=== PATIENT | female | born 1985 | race Caucasian/White ===

== ENCOUNTER 2021-03-07 10:56 | Emergency (ER) | payer BC ==
--- NOTE | 2021-03-07 11:33 | EDM.PDOC ---
ED HPI GENERAL MEDICAL PROBLEM - General Chief Complaint: Allergic Reaction Stated Complaint: FACE IS SWOLLEN Time Seen by Provider: 03/07/21 11:21 Source of Information: Reports: Patient, RN - History of Present Illness INITIAL COMMENTS - FREE TEXT/NARRATIVE: Noa is a 35 year old female presents with 16 hrs of entire body rash, hives which wax and wane last night after sitting near a bonfire (inside) with increased itching overnight. Rash on upper chest has faded but scratches are present. This am she went with family for a boat ride and developed fullness in her upper lip and facial swelling with slight fullness in the back of her throat. Noa took Benadryl 2 chewable in car when coming to ER with improvement of her symptoms by the time she arrived. Noa is concerned that her reaction may become worse over the remainder of her vacation in the area. Noa is from the [facility]. 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 Noa had been prescribed topical ointment in the past by dermatology but has not needed for nearly 2 years. - Related Data Allergies Allergy/AdvReac Type Severity Reaction Status Date / Time No Known Allergies Allergy Verified 03/07/21 11:17 Home Meds: Home Meds Fluocinolone Acetonide 60 gm TP BID 14 Days #60 oint...g. 03/07/21 [Rx] predniSONE [Prednisone] 40 mg PO DAILY 5 Days #10 tablet 03/07/21 [Rx] Social & Family History - Tobacco Use Tobacco Use Status *Q: Light Tobacco User Years of Tobacco use: 15 Packs/Tins Daily: 0.3 Used Tobacco, but Quit: Yes Month/Year Tobacco Last Used: 03/2021 - Caffeine Use Caffeine Use: Reports: Coffee - Recreational Drug Use Recreational Drug Use: No ED ROS ALLERGIC REACTION - Review of Systems Review Of Systems: Comprehensive ROS is negative, except as noted in HPI. ED EXAM GENERAL NO PERIP PULSE - Physical Exam Exam: See Below Exam Limited By: No Limitations General Appearance: Alert, WD/WN, No Apparent Distress Eye Exam: Bilateral Eye: Normal Inspection Ears: Normal External Exam Nose: Normal Inspection, Normal Mucosa Throat/Mouth: Other (slight fullness of upper more than lower lip). No: Normal Oropharynx (fullness erythema and slight edema noted ) Head: Atraumatic Neck: Normal Inspection, Supple Respiratory/Chest: No Respiratory Distress, Lungs Clear, Normal Breath Sounds Cardiovascular: Normal Peripheral Pulses, Regular Rate, Rhythm, No Murmur Neurological: Alert, Oriented, CN II-XII Intact, Normal Cognition, Normal Gait Psychiatric: Normal Mood Skin Exam: Warm, Dry, Intact, Normal Color, Rash (faint lace rash on numerous body surfaces without obvious wheal and flare. Scaly rash left hand with pustules (dyshydrotic ezema/dermatitis). ) Course - Vital Signs Last Recorded V/S: Last Vital Signs Temp 36.4 C 03/07/21 11:17 Pulse 90 03/07/21 11:17 Resp 16 03/07/21 11:17 BP 124/80 03/07/21 11:17 Pulse Ox 100 03/07/21 11:17 - Orders/Labs/Meds Meds: Medications Discontinued Medications Generic Name Dose Route Start Last Admin Trade Name James PRN Reason Stop Dose Admin Prednisone 60 mg 03/07/21 11:34 03/07/21 11:50 Prednisone 20 Mg Tab PO 03/07/21 11:35 60 mg ONETIME ONE Administration - Re-Assessments/Exams Free Text/Narrative Re-Assessment/Exam: No adverse reaction to oral prednisone during visit. Self care and prescriptions given for patient to review. Return precautions discussion if allergy symptoms worsen or new concerns. 03/07/21 12:22 Departure - Departure Time of Disposition: 12:23 Disposition: Home, Self-Care 01 Clinical Impression: Allergic reaction, Hives, Swelling of lip, tongue, and throat, Dermatitis, Dyshidrotic eczema - Discharge Information Prescriptions: Fluocinolone Acetonide 60 gm TP BID 14 Days #60 oint...g. predniSONE [Prednisone] 40 mg PO DAILY 5 Days #10 tablet Instructions: Allergies, Adult, Anaphylactic Reaction, Adult, Hives, Rash, Adult, Eczema Referrals: PCP,None [Primary Care Provider] - Forms: ED Department Discharge Additional Instructions: 1. Prednisone 40 mg daily x 5 days. 2. Zytrec 10mg (OTC) every am and pm x 10 days. 3. Benadryl 25-50mg every 6-8 hours as needed for additional symptoms if needed. 4. Steroid ointment for dermatitis on hands. 5. Keep track of exposures (over the last 72 hours) and time of year for repeat evaluation, if recurrence next year or with similar exposure history. 6. Return to ER if return worsening, new or concerning symptoms. Sepsis Event Note (ED) - Evaluation Sepsis Screening Result: No Definite Risk - Focused Exam Vital Signs: Vital Signs Temp Pulse Resp BP Pulse Ox 03/07/21 11:17 36.4 C 90 16 124/80 100 03/07/21 11:14 36.4 C 90 16 124/80 100
[2021-03-07] MEDS ORDERED: predniSONE 20 MG Tab PO ONE (11:34)
== END 2021-03-07 12:36 | disposition home or self-care (01) ==
LOC: JP.ED 10:56
DX: L50.0 Allergic urticaria (principal); L30.1 Dyshidrosis [pompholyx]; Z72.0 Tobacco use; Z79.899 Other long term (current) drug therapy
CPT/HCPCS: 99283; J7512

== ENCOUNTER 2021-03-07 23:46 | Emergency (ER) | payer BC ==
[2021-03-08] MEDS ORDERED: Cetirizine 10 MG Tab PO ONE (00:27)
--- NOTE | 2021-03-08 00:27 | EDM.PDOC ---
ED HPI GENERAL MEDICAL PROBLEM - General Chief Complaint: Allergic Reaction Stated Complaint: RASH Time Seen by Provider: 03/08/21 00:07 Source of Information: Reports: Patient, Old Records History Limitations: Reports: No Limitations - History of Present Illness INITIAL COMMENTS - FREE TEXT/NARRATIVE: Noa is a 35-year-old female presenting to the ED for reevaluation of an a llergic reaction. Patient was seen and evaluated earlier today by Katiuska Davis get started on therapy for her reaction. This evening, the patient again started having blotchy flushing from her upper chest to her head. This was associated with some swelling and increased temperature in the skin. The patient did not experience any shortness of breath or difficulty swallowing. There was no significant pruritus. The patient called the [facility] nurse triage line who was very rude to her so she called the [facility] nurse line as she is from [place], [place] and goes to [facility]. They recommend that she come to the ER to be seen again. The patient did take diphenhydramine about an hour prior to arrival and upon arrival to the ED most of her symptoms had completely abated. 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 He does also have a history significant for seasonal allergies but has not been on anything for these for the last several years. - Related Data Allergies Allergy/AdvReac Type Severity Reaction Status Date / Time No Known Allergies Allergy Verified 03/07/21 23:53 Home Meds: Home Meds Fluocinolone Acetonide 60 gm TP BID 14 Days #60 oint...g. 03/07/21 [Rx] diphenhydrAMINE [Benadryl] 50 mg PO Q6H PRN 03/07/21 [History] predniSONE [Prednisone] 40 mg PO DAILY 5 Days #10 tablet 03/07/21 [Rx] Social & Family History - Tobacco Use Tobacco Use Status *Q: Former Tobacco User Used Tobacco, but Quit: Yes Month/Year Tobacco Last Used: 1 week Second Hand Smoke Exposure: No - Caffeine Use Caffeine Use: Reports: Coffee - Recreational Drug Use Recreational Drug Use: No ED ROS ALLERGIC REACTION - Review of Systems Review Of Systems: See Below Constitutional: Reports: No Symptoms HEENT: Reports: Other (Facial swelling and flushing) Respiratory: Reports: No Symptoms Cardiovascular: Reports: No Symptoms Endocrine: Reports: No Symptoms GI/Abdominal: Reports: No Symptoms : Reports: No Symptoms Musculoskeletal: Reports: No Symptoms Skin: Reports: Erythema (Blotchy erythema that coalesced to a single patch from her upper chest to her face associated with increased temperature) Neurological: Reports: No Symptoms Psychiatric: Reports: Anxiety Hematologic/Lymphatic: Reports: No Symptoms Immunologic: Reports: No Symptoms ED EXAM GENERAL NO PERIP PULSE - Physical Exam Exam: See Below Exam Limited By: No Limitations General Appearance: Alert, No Apparent Distress, Anxious Eye Exam: Bilateral Eye: EOMI, PERRL Nose: Normal Inspection, Normal Mucosa, Clear Rhinorrhea. No: Nasal Swelling, Nasal Drainage Throat/Mouth: Normal Inspection, Normal Lips, Normal Oropharynx, Normal Voice, No Airway Compromise Head: Atraumatic, Normocephalic, Other (Temperature of the skin on the lower half of the face is a bit warmer than the upper. This extends down into the neck. There is no evidence for erythema or edema at this time.). No: Facial Swelling Neck: Normal Inspection, Supple, Non-Tender, Full Range of Motion Respiratory/Chest: No Respiratory Distress, Lungs Clear, Normal Breath Sounds, No Accessory Muscle Use. No: Decreased Breath Sounds, Wheezing, Stridor Cardiovascular: Normal Peripheral Pulses, Regular Rate, Rhythm, No Murmur GI/Abdominal: Normal Bowel Sounds Neurological: Alert, Oriented, Normal Cognition, No Motor/Sensory Deficits Skin Exam: Warm, Dry, Intact, Normal Color Lymphatic: No Adenopathy Course - Vital Signs Last Recorded V/S: Last Vital Signs Temp 36.6 C 03/07/21 23:57 Pulse 88 03/07/21 23:57 Resp 16 03/07/21 23:57 BP 121/76 03/07/21 23:57 Pulse Ox 98 03/07/21 23:57 - Re-Assessments/Exams Free Text/Narrative Re-Assessment/Exam: 03/08/21 00:38 by history and exam, it sounds like this was an acute histamine release. The patient was given cetirizine 10 mg in the ED and is already on other medication for her allergies. I recommend that she pickle sorter and start the cetirizine tomorrow during her time up here. As her symptoms have abated, I think she is suitable for discharge home. Indications return to the ED were discussed. Departure - Departure Time of Disposition: 00:28 Disposition: Home, Self-Care 01 Clinical Impression: Allergic reaction Qualifiers: Encounter type: initial encounter Qualified Code(s): T78.40XA - Allergy, unspecified, initial encounter - Discharge Information Instructions: Allergies, Adult, [id number] Referrals: PCP,None [Primary Care Provider] - Care Plan Goals: The reaction that you described causing the swelling and redness is caused by histamine release. The most common is activation of mast cells which are white blood cells that contain histamine that become activated with allergic stimulants. This in turn causes them to release the histamine causing dilation of the blood vessels and allowing more plasma to leave the bloodstream into the soft tissues causing the increased redness and edema. You may also get itching as a result of the histamine activating bradykinin in the skin and soft tissues. This type of allergic reaction is not associated typically with anaphylaxis which can be life-threatening. This type of reaction can be typically managed with Benadryl and long-acting antihistamines like cetirizine (Zyrtec) or Basia or Claritin. I suspect that one of the allergens that may have triggered your reaction today is pollen related due to the route and it stresses on the pine trees which have been in a prolonged pollination phase since referring. Because of this I would recommend taking the Zyrtec daily while up here. I would also keep some Benadryl on hand in case you get an acute flare, however, I think this is less likely to occur while having the cetirizine in your system. As we discussed, although the swelling and redness is bothersome, it is not worrisome as is usually not associated with anything that is serious. However, if you should develop any difficulty swallowing, muffled voice, or difficulty breathing, these are things that I would term as serious and require immediate intervention. It was a pleasure meeting you two. I hope that you enjoy your time appear and that these reactions will be behind you. Sepsis Event Note (ED) - Evaluation Sepsis Screening Result: No Definite Risk - Focused Exam Vital Signs: Vital Signs Temp Pulse Resp BP Pulse Ox 03/07/21 23:57 36.6 C 88 16 121/76 98 - Problem List & Annotations (1) Allergic reaction SNOMED Code(s): 563458351 Code(s): T78.40XA - ALLERGY, UNSPECIFIED, INITIAL ENCOUNTER Status: Acute Priority: Low Current Visit: Yes Qualifiers: Encounter type: initial encounter Qualified Code(s): T78.40XA - Allergy, unspecified, initial encounter - Problem List Review Problem List Initiated/Reviewed/Updated: Yes
== END 2021-03-08 01:06 | disposition home or self-care (01) ==
LOC: JP.ED 23:46
DX: T78.40XA Allergy, unspecified, initial encounter (principal); Z87.891 Personal history of nicotine dependence
CPT/HCPCS: 99283; A9270